=== PATIENT | male | born 1990 | race Caucasian/White ===

== ENCOUNTER 2025-06-01 14:55 | Emergency (ER) | payer BC, SELFPAY ==
[2025-06-01 14:57] VITALS: BP 163/91
[2025-06-01 15:10] LABS: Hematocrit 43.8 % (39.0-52.0); Hemoglobin 15.3 g/dL (13.0-18.0); Mean Corp Hgb Conc. 34.9 g/dL (33.0-37.0); Mean Corpuscular Volume 89.2 fL (80.0-94.0); Nucleated Red Blood Cells % 0 % (-); Platelet Count 251 10^3/uL (130-400); Red Cell Dist. Width 12.0 % (11.5-14.5)
[2025-06-01 15:35] LABS: ALT (SGPT) 27 U/L (0-50); AST (SGOT) 24 U/L (17-59); Albumin 4.8 g/dl (3.5-5.0); Alkaline Phosphatase 65 U/L (38-126); Blood Urea Nitrogen 19 mg/dl (9-20); Calcium 9.4 mg/dl (8.4-10.2); Carbon Dioxide 24 mmol/L (22-30); Chloride 105 mmol/L (98-107); Glucose 108 mg/dl (70-99); Potassium 4.3 mmol/L (3.5-5.1); Sodium 139 mmol/L (135-145); Total Protein 8.2 g/dl (6.3-8.2); eGFR > 60.00
--- NOTE | 2025-06-01 16:24 | ED.SKININJ ---
Addendum entered and electronically signed by Rosalba Palm PA-C 06/03/25 06:14:
Patient's culture grew out Staph aureus preliminarily, patient is on Bactrim and Doxy
Original Note:
HPI-Injury
<Chantale Bettencourt NP - Last Filed: 06/02/25 19:05>
General
Chief Complaint: Skin Problem
Source: patient
Exam Limitations: none
Time Seen by Provider: 06/01/25 15:41
Nursing documentation reviewed up to this point in time: agreed with
History of Present Illness-Injury
Is this injury a work related problem?: No
Is pt an associate of [facility]?: No
Initial Injury comments:
Patient to ED with complaint of erythema and swelling to right elbow. States 1 week ago he noticed what looked to him like a pimple over right posterior elbow. States he squeezed it and a small amt of pus was expelled. States area began to become
increasingly red, swollen and painful. He was seen at on Saturday and placed on Bactrim DS bid. States the swelling and pain has improved but the redness continues to expand. Denies fever/chills. Brought self to ED for eval.
Past History
<Chantale Bettencourt NP - Last Filed: 06/02/25 19:05>
Past History
ED Past Medical History: None
Review of Systems
<Chantale Bettencourt NP - Last Filed: 06/02/25 19:05>
Review of Systems
Allergies reviewed?: Yes
All Other Systems: ROS reviewed and negative except as documented in HPI and ROS
Constitutional: Reports no symptoms
EENT: Reports no symptoms
Respiratory: Reports no symptoms
Cardiac: Reports no symptoms
ABD/GI: Reports no symptoms
Musculoskeletal: Reports no symptoms (Full ROM to right elbow joint)
Skin: Reports other (erythema, swelling to right elbow. 0.5cm scab at site. Draining scant pus)
Neurological: Reports no symptoms
Psychiatric: Reports no symptoms
Phy Exam
<Chantale Bettencourt NP - Last Filed: 06/02/25 19:05>
General Physical Exam
General Presentation: well appearing and no apparent distress
General age: appears stated age
General Skin: warm and dry
General Habitus: normal
General Mental: alert
Musculoskeletal Exam
Musculoskeletal Exam: full ROM (No pain to right elbow. Full ROM to joint) and neuro vasc intact
Skin Exam
Skin Exam: warm/dry and other (erthema and swelling noted to right elbow and forearm)
Psychiatric Exam
Psychiatric Exam: normal mood/affect
Course
<Chantale Bettencourt NP - Last Filed: 06/02/25 19:05>
Orders/Labs/Results
Orders:
Orders
06/01/25 15:04
Complete Blood Count/With Diff Urgent
Comprehensive Metabolic Panel Urgent
06/01/25 16:20
Elbow, 3 View, Right [CR Elbow - Right Min 3 Views] Urgent
Comment:
Reason For Exam: redness, swelling
06/01/25 16:25
Wound Culture [Wound/Abscess/Other Culture] Urgent
ARLENE Source: Elbow
Specimen Description: Right
Date Specimen was Collected: 06/01/25
Time Specimen was Collected: 16:24
06/01/25 18:10
Doxycycline [Vibramycin] 100 mg PO NOW STA
Abnormal Lab Results
06/01/25
15:04
WBC 10.9 H 10^3/uL
(4.8-10.8)
MCH 31.2 H pg
(27.0-31.0)
Absolute Neuts (auto) 7.9 H 10^3/uL
(1.4-6.5)
Absolute Monos (auto) 1.1 H 10^3/uL
(0.1-0.6)
Lymphocytes % 16.0 L %
(20.5-51.1)
Monocytes % 9.9 H %
(1.7-9.3)
Glucose 108 H mg/dl
(70-99)
06/01/25 15:04
06/01/25 15:04
Vital Signs
Initial and Last Documented VS:
Initial Vital Signs
Temp Pulse Resp BP Pulse Ox
98.8 F 93 17 163/91 99
06/01/25 14:57 06/01/25 14:57 06/01/25 14:57 06/01/25 14:57 06/01/25 14:57
Last Documented Vital Signs
Temp Pulse Resp BP Pulse Ox
98.8 F 93 17 163/91 99
06/01/25 14:57 06/01/25 14:57 06/01/25 14:57 06/01/25 14:57 06/01/25 16:29
<Néstor Watkins, DO - Last Filed: 06/01/25 18:12>
Orders/Labs/Results
Orders:
Orders
06/01/25 15:04
Complete Blood Count/With Diff Urgent
Comprehensive Metabolic Panel Urgent
06/01/25 16:20
Elbow, 3 View, Right [CR Elbow - Right Min 3 Views] Urgent
Comment:
Reason For Exam: redness, swelling
06/01/25 16:25
Wound Culture [Wound/Abscess/Other Culture] Urgent
ARLENE Source: Elbow
Specimen Description: Right
Date Specimen was Collected: 06/01/25
Time Specimen was Collected: 16:24
06/01/25 18:10
Doxycycline [Vibramycin] 100 mg PO NOW STA
Abnormal Lab Results
06/01/25
15:04
WBC 10.9 H 10^3/uL
(4.8-10.8)
MCH 31.2 H pg
(27.0-31.0)
Absolute Neuts (auto) 7.9 H 10^3/uL
(1.4-6.5)
Absolute Monos (auto) 1.1 H 10^3/uL
(0.1-0.6)
Lymphocytes % 16.0 L %
(20.5-51.1)
Monocytes % 9.9 H %
(1.7-9.3)
Glucose 108 H mg/dl
(70-99)
06/01/25 15:04
06/01/25 15:04
Vital Signs
Initial and Last Documented VS:
Initial Vital Signs
Temp Pulse Resp BP Pulse Ox
98.8 F 93 17 163/91 99
06/01/25 14:57 06/01/25 14:57 06/01/25 14:57 06/01/25 14:57 06/01/25 14:57
Last Documented Vital Signs
Temp Pulse Resp BP Pulse Ox
98.8 F 93 17 163/91 99
06/01/25 14:57 06/01/25 14:57 06/01/25 14:57 06/01/25 14:57 06/01/25 16:29
Procedures
<Néstor Watkins DO - Last Filed: 06/01/25 18:12>
Incision/Drainage/Joint Aspiration
Right Elbow:
Preparation: cleaned with alcohol wipe
Type of procedure: aspiration
Nature of site: other (Elbow swelling)
How much fluid was obtained?: none
Treatment: antibiotics started
<Chantale Bettencourt RETAIL SERVICE REPRESENTATIVE - Last Filed: 06/02/25 19:05>
*Radiology
Radiology exam reviewed: radiology read reviewed
*Pulse Oximetry
SaO2: 99
Oxygen Mode of Delivery: Room air
Patient hypoxic: no
*Critical Care Note
Total Time (30-74mins, 75-104mins- exclusive of procedures): Not Applicable
<Chantale Bettencourt NP - Last Filed: 06/02/25 19:05>
Update Note
Update Note:
Patient to ED with redness and swelling to right posterior elbow extending to right forearm. Placed on bactrim DS on saturday by . States the pain and swelling has improved but erythema continues to expand. He remains afebrile. Labs reviewed,
WBC 10.9. WOund culture sent. Case discussed with Dr. Watkins who also evaluated this patient. Will d/c bactrim, place on doxy bid. He will add warm compresses 4-5 times daily. Will follow upw tih PCP. Agrees to return to ED immediately for
any changes in/worsening of his symtpoms.
ED Attending Note
<Chantale Bettencourt NP - Last Filed: 06/02/25 19:05>
-
Portions of this chart may have been created with voice recognition software.� Occasional wrong word or��sound alike� substitutions may have occurred due to the inherent limitations of voice recognition software.
<Néstor Watkins, - Last Filed: 06/01/25 18:12>
ED Attending Note
Patient seen and examined by attending physician: Yes
ED Attending Note:
I reviewed and agree with history and treatment plan by Chantale Bettencourt NP. My exam revealed 35-year-old male, afebrile, no acute distress with erythema about right elbow while on Bactrim. I attempted needle aspiration of swelling and achieved
only bloody drainage. Discussed admission versus discharge and patient agrees he will come back swelling or redness is worse. Will start on doxycycline.
Discharge Plan
Departure
Patient Disposition: Home (Routine Discharge)
Date of Disposition: 06/01/25
Time of Disposition: 18:10
Patient with high blood pressure during this ER visit?: No
Condition: Good
Covid-19: Not Applicable
Discharge Problem:
Cellulitis of right elbow
Instructions: Wound Care (DC), Cellulitis (Skin Infection), Adult (DC)
Prescriptions:
New
doxycycline hyclate 100 mg capsule
100 mg PO BID Qty: 20 0RF
Referrals:
Gabe Melendez MD [Family Provider, Family Practice] - Follow up in 2-3 days
Activity Restrictions/Additional Instructions:
Return to the emergency department immediately for fever/chills, increasing pain/redness/swelling to your right elbow, or for any further concerns. Stop Sulfamethoxazole (antibiotic from urgent care)
Interventions
Interventions:
*Risk Screen - Suicide Last Done: 06/01/25 15:00
*General Assessment Last Done: 06/01/25 15:00
*Neglect/Abuse Screening Last Done: 06/01/25 15:00
*ED COVID-19 Vaccine History Last Done: 06/01/25 15:00
*Nursing Disposition Last Done: 06/01/25 18:39
Discharge Date and Time
Discharge Date/Time: 06/01/25 18:39
Print Language: LAO
[2025-06-01] MEDS: VIBRAMYCIN 100 MG PO (18:29)
== END 2025-06-01 18:39 | disposition home or self-care (01) ==
LOC: EMR 14:55
PROVIDERS: EMERGENCY PHYSICIAN Emergency Medicine; FAMILY PHYSICIAN Family Medicine
DX: L03.113 Cellulitis of right upper limb (principal); M25.421 Effusion, right elbow
CPT/HCPCS: 20605; 99284; 73080; 80053; 85025; 87070; 87147; 87205